=== PATIENT | female | born 1955 | race Caucasian/White ===

== ENCOUNTER 2023-04-15 03:14 | Outpatient (CLI) | payer MEDICARE, OTHER, SELFPAY ==
[2023-04-15 12:28] LABS: Abs Immature Grans 0.03 10^3/uL (0.0-0.06); Absolute Basophil Count 0.05 10^3/uL (0.0-0.2); Absolute Eosinophil Count 0.32 10^3/uL (0.0-0.7); Absolute Lymphocyte Count 4.33 10^3/uL (1.2-3.4); Absolute Monocyte Count 0.87 10^3/uL (0.1-0.8); Absolute Neutrophil Count 4.38 10^3/uL (1.2-6.7); Basophils % 0.5; Eosinophils % 3.2; HCT 42.8 % (36.0-46.0); HGB 14.1 g/dL (11.2-15.7); Immature Grans % 0.3; Lymphocytes % 43.4; MCH 28.7 pg (27.0-33.0); MCHC 32.9 % (32.0-36.0); MCV 87 fL (80-95); MPV 8.7 fL (8.0-11.0); Monocytes % 8.7; Neutrophils % 43.9; Platelet Count 200 10^3/uL (130-400); RBC 4.92 10^6/uL (3.93-5.22); RDW 15.1 % (11.7-14.6); RDW-SD 47.5 fL; WBC 9.98 10^3/uL (4.4-10.8)
[2023-04-15 12:46] LABS: ALT 20 U/L (14-59); AST 22 U/L (15-37); Albumin 3.2 g/dL (3.4-5.0); Alkaline Phosphatase 127 U/L (46-116); Anion Gap 6.9 mmol/L (3-11); BUN 12 mg/dL (7-18); Bilirubin, Total 0.3 mg/dL (0.2-1.0); CO2 28.1 mmol/L (21.0-32.0); CREATININE 0.8 mg/dL (0.55-1.02); Calcium 9.2 mg/dL (8.5-10.1); Chloride 105 mmol/L (98-107); Estimated GFR 81.21 (mL/min/1.73m2); Glucose 110 mg/dL (74-106); Magnesium 1.7 mg/dL (1.8-2.4); Potassium 4.1 mmol/L (3.5-5.1); Sodium 140 mmol/L (136-145); Total Protein 6.8 g/dL (6.4-8.2)
== END 2023-04-15 03:15 | disposition home or self-care (01) ==
LOC: LBO 03:14
PROVIDERS: PCP Nurse Practitioner Family; Visit Provider Internal Medicine Medical Oncology
DX: C34.11 Malignant neoplasm of upper lobe, right bronchus or lung (principal)
CPT/HCPCS: 36415; 80053; 83735; 85025

== ENCOUNTER 2023-05-04 04:49 | Outpatient (CLI) | payer MEDICARE, OTHER, SELFPAY ==
[2023-05-04 10:58] LABS: Abs Immature Grans 0.05 10^3/uL (0.0-0.06); Absolute Basophil Count 0.03 10^3/uL (0.0-0.2); Absolute Eosinophil Count 0.38 10^3/uL (0.0-0.7); Absolute Lymphocyte Count 2.25 10^3/uL (1.2-3.4); Absolute Neutrophil Count 3.35 10^3/uL (1.2-6.7); Basophils % 0.5; Eosinophils % 5.8; HCT 43.7 % (36.0-46.0); HGB 14.4 g/dL (11.2-15.7); Immature Grans % 0.8; Lymphocytes % 34.3; MCH 28.3 pg (27.0-33.0); MCV 86 fL (80-95); MPV 8.6 fL (8.0-11.0); Monocytes % 7.6; Platelet Count 205 10^3/uL (130-400); RBC 5.08 10^6/uL (3.93-5.22); RDW-SD 46.8 fL; WBC 6.56 10^3/uL (4.4-10.8)
[2023-05-04 11:19] LABS: ALT 20 U/L (14-59); AST 16 U/L (15-37); Albumin 3.1 g/dL (3.4-5.0); Alkaline Phosphatase 121 U/L (46-116); Anion Gap 10.5 mmol/L (3-11); BUN 14 mg/dL (7-18); Bilirubin, Total 0.3 mg/dL (0.2-1.0); CO2 23.5 mmol/L (21.0-32.0); CREATININE 0.7 mg/dL (0.55-1.02); Calcium 9.6 mg/dL (8.5-10.1); Chloride 109 mmol/L (98-107); Estimated GFR 95.32 (mL/min/1.73m2); Glucose 135 mg/dL (74-106); Magnesium 1.8 mg/dL (1.8-2.4); Potassium 3.7 mmol/L (3.5-5.1); Sodium 143 mmol/L (136-145); Total Protein 6.6 g/dL (6.4-8.2)
== END 2023-05-04 04:50 | disposition home or self-care (01) ==
LOC: LBO 04:49
PROVIDERS: PCP Nurse Practitioner Family; Visit Provider Internal Medicine Medical Oncology
DX: C34.11 Malignant neoplasm of upper lobe, right bronchus or lung (principal)
CPT/HCPCS: 36415; 80053; 83735; 85025

== ENCOUNTER 2023-05-11 03:48 | Outpatient (CLI) | payer MEDICARE, OTHER, SELFPAY ==
[2023-05-11 08:08] LABS: HCT 41.7 % (36.0-46.0); MCHC 33.6 % (32.0-36.0); MCV 86 fL (80-95); MPV 8.9 fL (8.0-11.0); Platelet Count 186 10^3/uL (130-400); RBC 4.83 10^6/uL (3.93-5.22); RDW 15.8 % (11.7-14.6); RDW-SD 47.8 fL; WBC 5.12 10^3/uL (4.4-10.8)
[2023-05-11 08:18] LABS: Magnesium 1.7 mg/dL (1.8-2.4)
[2023-05-11 09:17] LABS: Abs Immature Grans 0.05 10^3/uL (0.0-0.06); Absolute Basophil Count 0.02 10^3/uL (0.0-0.2); Absolute Eosinophil Count 0.25 10^3/uL (0.0-0.7); Absolute Lymphocyte Count 1.62 10^3/uL (1.2-3.4); Absolute Monocyte Count 0.36 10^3/uL (0.1-0.8); Absolute Neutrophil Count 2.82 10^3/uL (1.2-6.7); Basophils % 0.4; Eosinophils % 4.9; Lymphocytes % 31.6; Neutrophils % 55.1
[2023-05-11 09:21] LABS: ALT 20 U/L (14-59); AST 14 U/L (15-37); Albumin 3.2 g/dL (3.4-5.0); Alkaline Phosphatase 115 U/L (46-116); Anion Gap 8.8 mmol/L (3-11); BUN 17 mg/dL (7-18); Bilirubin, Total 0.3 mg/dL (0.2-1.0); CO2 26.2 mmol/L (21.0-32.0); CREATININE 0.7 mg/dL (0.55-1.02); Calcium 9.5 mg/dL (8.5-10.1); Chloride 108 mmol/L (98-107); Estimated GFR 95.32 (mL/min/1.73m2); Glucose 116 mg/dL (74-106); Sodium 143 mmol/L (136-145); Total Protein 6.7 g/dL (6.4-8.2)
== END 2023-05-11 03:49 | disposition home or self-care (01) ==
PROVIDERS: PCP Nurse Practitioner Family; Visit Provider Internal Medicine Medical Oncology
DX: C34.11 Malignant neoplasm of upper lobe, right bronchus or lung (principal)
CPT/HCPCS: 36415; 80053; 85027; 83735; 85007

== ENCOUNTER 2023-05-18 03:24 | Outpatient (CLI) | payer MEDICARE, OTHER, SELFPAY ==
[2023-05-18 08:12] LABS: Abs Immature Grans 0.04 10^3/uL (0.0-0.06); Absolute Basophil Count 0.02 10^3/uL (0.0-0.2); Absolute Eosinophil Count 0.23 10^3/uL (0.0-0.7); Absolute Monocyte Count 0.49 10^3/uL (0.1-0.8); Absolute Neutrophil Count 2.62 10^3/uL (1.2-6.7); Basophils % 0.4; HGB 13.5 g/dL (11.2-15.7); Immature Grans % 0.9; Lymphocytes % 26.1; MCHC 33.8 % (32.0-36.0); MCV 86 fL (80-95); Monocytes % 10.7; Neutrophils % 56.9; Platelet Count 161 10^3/uL (130-400); RBC 4.66 10^6/uL (3.93-5.22); RDW 16.2 % (11.7-14.6); RDW-SD 47.2 fL
[2023-05-18 08:28] LABS: ALT 19 U/L (14-59); AST 16 U/L (15-37); Albumin 3.4 g/dL (3.4-5.0); Alkaline Phosphatase 110 U/L (46-116); Anion Gap 10.2 mmol/L (3-11); BUN 10 mg/dL (7-18); Bilirubin, Total 0.4 mg/dL (0.2-1.0); CO2 27.8 mmol/L (21.0-32.0); CREATININE 0.7 mg/dL (0.55-1.02); Calcium 9.5 mg/dL (8.5-10.1); Chloride 106 mmol/L (98-107); Estimated GFR 95.32 (mL/min/1.73m2); Glucose 112 mg/dL (74-106); Magnesium 1.5 mg/dL (1.8-2.4); Potassium 3.4 mmol/L (3.5-5.1); Sodium 144 mmol/L (136-145); Total Protein 6.5 g/dL (6.4-8.2)
== END 2023-05-18 03:25 | disposition home or self-care (01) ==
LOC: LBO 03:24
PROVIDERS: PCP Nurse Practitioner Family; Visit Provider Internal Medicine Medical Oncology
DX: C34.11 Malignant neoplasm of upper lobe, right bronchus or lung (principal)
CPT/HCPCS: 36415; 80053; 83735; 85025

== ENCOUNTER 2023-05-25 01:04 | Outpatient (CLI) | payer MEDICARE, OTHER, SELFPAY ==
[2023-05-25 08:17] LABS: Abs Immature Grans 0.04 10^3/uL (0.0-0.06); Absolute Basophil Count 0.02 10^3/uL (0.0-0.2); Absolute Eosinophil Count 0.19 10^3/uL (0.0-0.7); Absolute Lymphocyte Count 1.02 10^3/uL (1.2-3.4); Absolute Monocyte Count 0.36 10^3/uL (0.1-0.8); Absolute Neutrophil Count 1.84 10^3/uL (1.2-6.7); Basophils % 0.6; Eosinophils % 5.5; HCT 38.5 % (36.0-46.0); HGB 13.1 g/dL (11.2-15.7); Immature Grans % 1.2; Lymphocytes % 29.4; MCV 85 fL (80-95); MPV 9.5 fL (8.0-11.0); Monocytes % 10.4; Neutrophils % 52.9; Platelet Count 122 10^3/uL (130-400); RBC 4.52 10^6/uL (3.93-5.22); RDW 17.2 % (11.7-14.6); RDW-SD 50.2 fL; WBC 3.47 10^3/uL (4.4-10.8)
[2023-05-25 08:35] LABS: ALT 21 U/L (14-59); AST 19 U/L (15-37); Albumin 3.2 g/dL (3.4-5.0); Alkaline Phosphatase 102 U/L (46-116); Anion Gap 10.7 mmol/L (3-11); BUN 11 mg/dL (7-18); Bilirubin, Total 0.4 mg/dL (0.2-1.0); CO2 26.3 mmol/L (21.0-32.0); CREATININE 0.7 mg/dL (0.55-1.02); Calcium 9.1 mg/dL (8.5-10.1); Chloride 105 mmol/L (98-107); Estimated GFR 95.32 (mL/min/1.73m2); Glucose 116 mg/dL (74-106); Magnesium 1.6 mg/dL (1.8-2.4); Potassium 3.3 mmol/L (3.5-5.1); Sodium 142 mmol/L (136-145); Total Protein 6.5 g/dL (6.4-8.2)
== END 2023-05-25 01:05 | disposition home or self-care (01) ==
PROVIDERS: PCP Nurse Practitioner Family; Visit Provider Internal Medicine Medical Oncology
DX: C34.11 Malignant neoplasm of upper lobe, right bronchus or lung (principal)
CPT/HCPCS: 36415; 80053; 83735; 85025

== ENCOUNTER 2023-06-01 03:56 | Outpatient (CLI) | payer MEDICARE, OTHER, SELFPAY ==
[2023-06-01 08:10] LABS: Abs Immature Grans 0.15 10^3/uL (0.0-0.06); MCH 29.4 pg (27.0-33.0); MCHC 34.3 % (32.0-36.0); MCV 86 fL (80-95); RBC 4.08 10^6/uL (3.93-5.22); RDW 18.1 % (11.7-14.6); RDW-SD 54.4 fL; WBC 2.41 10^3/uL (4.4-10.8)
[2023-06-01 08:23] LABS: ALT 16 U/L (14-59); AST 21 U/L (15-37); Albumin 2.9 g/dL (3.4-5.0); Alkaline Phosphatase 102 U/L (46-116); Anion Gap 7.4 mmol/L (3-11); BUN 9 mg/dL (7-18); Bilirubin, Total 0.4 mg/dL (0.2-1.0); CO2 26.6 mmol/L (21.0-32.0); CREATININE 0.7 mg/dL (0.55-1.02); Calcium 8.7 mg/dL (8.5-10.1); Chloride 108 mmol/L (98-107); Estimated GFR 95.32 (mL/min/1.73m2); Glucose 132 mg/dL (74-106); Magnesium 1.4 mg/dL (1.8-2.4); Potassium 3.6 mmol/L (3.5-5.1); Sodium 142 mmol/L (136-145)
[2023-06-01 08:58] LABS: Absolute Eosinophil Count 0.02 10^3/uL (0.0-0.7); Absolute Lymphocyte Count 0.39 10^3/uL (1.2-3.4); Absolute Monocyte Count 0.17 10^3/uL (0.1-0.8); Absolute Neutrophil Count 1.76 10^3/uL (1.2-6.7); Atypical Lymphocytes % 4; Myelocytes % 3
[2023-06-01 08:59] LABS: Platelet Count 83 10^3/uL (130-400)
== END 2023-06-01 03:57 | disposition home or self-care (01) ==
LOC: LBO 03:57
PROVIDERS: PCP Nurse Practitioner Family; Visit Provider Internal Medicine Medical Oncology
DX: C34.11 Malignant neoplasm of upper lobe, right bronchus or lung (principal)
CPT/HCPCS: 36415; 80053; 83735; 85025

== ENCOUNTER 2023-06-22 04:08 | Outpatient (CLI) | payer MEDICARE, OTHER, SELFPAY ==
[2023-06-22 08:54] LABS: Abs Immature Grans 0.03 10^3/uL (0.0-0.06); Absolute Basophil Count 0.01 10^3/uL (0.0-0.2); Absolute Eosinophil Count 0.22 10^3/uL (0.0-0.7); Absolute Lymphocyte Count 1.21 10^3/uL (1.2-3.4); Absolute Monocyte Count 0.84 10^3/uL (0.1-0.8); Absolute Neutrophil Count 3.37 10^3/uL (1.2-6.7); Basophils % 0.2; Eosinophils % 3.9; HCT 34.4 % (36.0-46.0); HGB 11.9 g/dL (11.2-15.7); Immature Grans % 0.5; Lymphocytes % 21.3; MCH 31.6 pg (27.0-33.0); MCHC 34.6 % (32.0-36.0); MCV 92 fL (80-95); MPV 9.1 fL (8.0-11.0); Monocytes % 14.8; Neutrophils % 59.3; Platelet Count 130 10^3/uL (130-400); RBC 3.76 10^6/uL (3.93-5.22); RDW 22.9 % (11.7-14.6); RDW-SD 73.6 fL; WBC 5.68 10^3/uL (4.4-10.8)
[2023-06-22 09:15] LABS: Anisocytosis 2+; Diff Comment RBC Morph Reviewed
[2023-06-22 09:18] LABS: ALT 15 U/L (14-59); AST 15 U/L (15-37); Albumin 3.1 g/dL (3.4-5.0); Alkaline Phosphatase 115 U/L (46-116); BUN 13 mg/dL (7-18); Bilirubin, Total 0.5 mg/dL (0.2-1.0); CREATININE 0.8 mg/dL (0.55-1.02); Calcium 9.6 mg/dL (8.5-10.1); Chloride 105 mmol/L (98-107); Estimated GFR 81.21 (mL/min/1.73m2); Glucose 109 mg/dL (74-106); Magnesium 1.6 mg/dL (1.8-2.4); Potassium 3.9 mmol/L (3.5-5.1); Sodium 141 mmol/L (136-145); Total Protein 6.4 g/dL (6.4-8.2)
[2023-06-22 11:24] LABS: FREE T4 0.85 ng/dL (0.76-1.46); TSH 12.61 uIU/mL (0.36-3.74)
== END 2023-06-22 04:09 | disposition home or self-care (01) ==
LOC: LBO 04:09
PROVIDERS: PCP Nurse Practitioner Family; Visit Provider Internal Medicine Medical Oncology
DX: C34.11 Malignant neoplasm of upper lobe, right bronchus or lung (principal); Z79.899 Other long term (current) drug therapy
CPT/HCPCS: 36415; 80053; 83735; 84439; 84443; 85025

== ENCOUNTER 2023-07-21 03:15 | Outpatient (CLI) | payer MEDICARE, OTHER, SELFPAY ==
[2023-07-21 12:06] LABS: Abs Immature Grans 0.03 10^3/uL (0.0-0.06); Absolute Basophil Count 0.02 10^3/uL (0.0-0.2); Absolute Eosinophil Count 0.46 10^3/uL (0.0-0.7); Absolute Lymphocyte Count 1.96 10^3/uL (1.2-3.4); Absolute Monocyte Count 0.76 10^3/uL (0.1-0.8); Absolute Neutrophil Count 3.52 10^3/uL (1.2-6.7); Basophils % 0.3; Eosinophils % 6.8; HCT 39.3 % (36.0-46.0); HGB 13.6 g/dL (11.2-15.7); Immature Grans % 0.4; MCH 33.1 pg (27.0-33.0); MCHC 34.6 % (32.0-36.0); MCV 96 fL (80-95); MPV 8.9 fL (8.0-11.0); Monocytes % 11.3; Neutrophils % 52.2; Platelet Count 163 10^3/uL (130-400); RBC 4.11 10^6/uL (3.93-5.22); RDW 15.5 % (11.7-14.6); RDW-SD 53.8 fL; WBC 6.75 10^3/uL (4.4-10.8)
[2023-07-21 12:22] LABS: ALT 38 U/L (14-59); AST 36 U/L (15-37); Albumin 3.2 g/dL (3.4-5.0); Alkaline Phosphatase 135 U/L (46-116); Anion Gap 10.1 mmol/L (3-11); BUN 14 mg/dL (7-18); Bilirubin, Total 0.4 mg/dL (0.2-1.0); CO2 25.9 mmol/L (21.0-32.0); CREATININE 0.8 mg/dL (0.55-1.02); Calcium 8.8 mg/dL (8.5-10.1); Chloride 105 mmol/L (98-107); Estimated GFR 81.21 (mL/min/1.73m2); Glucose 98 mg/dL (74-106); Magnesium 1.8 mg/dL (1.8-2.4); Potassium 3.7 mmol/L (3.5-5.1); Sodium 141 mmol/L (136-145); Total Protein 6.4 g/dL (6.4-8.2)
== END 2023-07-21 03:16 | disposition home or self-care (01) ==
LOC: LBO 03:16
PROVIDERS: PCP Nurse Practitioner Family; Visit Provider Internal Medicine Medical Oncology
DX: C34.11 Malignant neoplasm of upper lobe, right bronchus or lung (principal)
CPT/HCPCS: 36415; 80053; 83735; 85025

== ENCOUNTER 2023-08-17 03:16 | Outpatient (CLI) | payer MEDICARE, OTHER, SELFPAY ==
[2023-08-17 08:49] LABS: Abs Immature Grans 0.03 10^3/uL (0.0-0.06); Absolute Basophil Count 0.04 10^3/uL (0.0-0.2); Absolute Eosinophil Count 0.52 10^3/uL (0.0-0.7); Absolute Lymphocyte Count 1.77 10^3/uL (1.2-3.4); Absolute Monocyte Count 0.73 10^3/uL (0.1-0.8); Absolute Neutrophil Count 3.92 10^3/uL (1.2-6.7); Basophils % 0.6; Eosinophils % 7.4; HCT 44.4 % (36.0-46.0); HGB 15.4 g/dL (11.2-15.7); Immature Grans % 0.4; Lymphocytes % 25.2; MCH 32.6 pg (27.0-33.0); MCHC 34.7 % (32.0-36.0); MCV 94 fL (80-95); MPV 8.9 fL (8.0-11.0); Monocytes % 10.4; Platelet Count 178 10^3/uL (130-400); RBC 4.73 10^6/uL (3.93-5.22); RDW 12.4 % (11.7-14.6); RDW-SD 42.8 fL; WBC 7.01 10^3/uL (4.4-10.8)
[2023-08-17 09:49] LABS: ALT 25 U/L (14-59); AST 20 U/L (15-37); Albumin 3.4 g/dL (3.4-5.0); Alkaline Phosphatase 152 U/L (46-116); Anion Gap 11.4 mmol/L (3-11); BUN 10 mg/dL (7-18); Bilirubin, Total 0.4 mg/dL (0.2-1.0); CO2 24.6 mmol/L (21.0-32.0); CREATININE 0.8 mg/dL (0.55-1.02); Calcium 9.5 mg/dL (8.5-10.1); Chloride 106 mmol/L (98-107); Estimated GFR 81.21 (mL/min/1.73m2); Glucose 146 mg/dL (74-106); Magnesium 1.8 mg/dL (1.8-2.4); Potassium 3.9 mmol/L (3.5-5.1); Sodium 142 mmol/L (136-145); Total Protein 6.9 g/dL (6.4-8.2)
[2023-08-17 11:51] LABS: FREE T4 0.79 ng/dL (0.76-1.46); TSH 6.78 uIU/mL (0.36-3.74)
== END 2023-08-17 03:17 | disposition home or self-care (01) ==
PROVIDERS: PCP Nurse Practitioner Family; Visit Provider Internal Medicine Medical Oncology
DX: C34.11 Malignant neoplasm of upper lobe, right bronchus or lung (principal); Z79.899 Other long term (current) drug therapy
CPT/HCPCS: 36415; 80053; 83735; 84439; 84443; 85025

== ENCOUNTER 2023-09-14 04:04 | Outpatient (CLI) | payer MEDICARE, OTHER, SELFPAY ==
[2023-09-14 09:09] LABS: HCT 46.1 % (36.0-46.0); HGB 16.3 g/dL (11.2-15.7); MCH 32.1 pg (27.0-33.0); MCHC 35.4 % (32.0-36.0); MCV 91 fL (80-95); Platelet Count 157 10^3/uL (130-400); RBC 5.08 10^6/uL (3.93-5.22); RDW 12.6 % (11.7-14.6); RDW-SD 41.9 fL
[2023-09-14 09:10] LABS: Abs Immature Grans 0.04 10^3/uL (0.0-0.06); Absolute Basophil Count 0.02 10^3/uL (0.0-0.2); Absolute Eosinophil Count 0.25 10^3/uL (0.0-0.7); Absolute Lymphocyte Count 1.32 10^3/uL (1.2-3.4); Absolute Monocyte Count 0.81 10^3/uL (0.1-0.8); Absolute Neutrophil Count 5.16 10^3/uL (1.2-6.7); Basophils % 0.3; Eosinophils % 3.3; Immature Grans % 0.5; Lymphocytes % 17.4; MPV 8.8 fL (8.0-11.0); Monocytes % 10.7; Neutrophils % 67.8
[2023-09-14 09:26] LABS: ALT 20 U/L (14-59); AST 18 U/L (15-37); Albumin 3.6 g/dL (3.4-5.0); Alkaline Phosphatase 143 U/L (46-116); Anion Gap 12.4 mmol/L (3-11); BUN 11 mg/dL (7-18); Bilirubin, Total 0.4 mg/dL (0.2-1.0); CO2 27.6 mmol/L (21.0-32.0); Calcium 9.4 mg/dL (8.5-10.1); Chloride 106 mmol/L (98-107); Estimated GFR 62.13 (mL/min/1.73m2); Glucose 129 mg/dL (74-106); Magnesium 1.6 mg/dL (1.8-2.4); Potassium 3.7 mmol/L (3.5-5.1); Sodium 146 mmol/L (136-145); Total Protein 7.2 g/dL (6.4-8.2)
[2023-09-14 11:34] LABS: FREE T4 0.82 ng/dL (0.76-1.46); TSH 5.99 uIU/mL (0.36-3.74)
== END 2023-09-14 04:05 | disposition home or self-care (01) ==
LOC: LBO 04:05
PROVIDERS: PCP Nurse Practitioner Family; Visit Provider Internal Medicine Medical Oncology
DX: C34.11 Malignant neoplasm of upper lobe, right bronchus or lung (principal); Z79.899 Other long term (current) drug therapy
CPT/HCPCS: 36415; 80053; 83735; 84439; 84443; 85025

== ENCOUNTER 2023-10-12 05:08 | Outpatient (CLI) | payer MEDICARE, OTHER, SELFPAY ==
[2023-10-12 09:58] LABS: Abs Immature Grans 0.02 10^3/uL (0.0-0.06); Absolute Basophil Count 0.04 10^3/uL (0.0-0.2); Absolute Eosinophil Count 0.29 10^3/uL (0.0-0.7); Absolute Lymphocyte Count 1.53 10^3/uL (1.2-3.4); Absolute Monocyte Count 0.76 10^3/uL (0.1-0.8); Absolute Neutrophil Count 5.91 10^3/uL (1.2-6.7); Basophils % 0.5; Eosinophils % 3.4; HCT 46.9 % (36.0-46.0); HGB 16.3 g/dL (11.2-15.7); Immature Grans % 0.2; Lymphocytes % 17.9; MCH 31.8 pg (27.0-33.0); MCHC 34.8 % (32.0-36.0); MCV 91 fL (80-95); Monocytes % 8.9; Neutrophils % 69.1; RBC 5.13 10^6/uL (3.93-5.22); RDW 12.9 % (11.7-14.6); RDW-SD 42.7 fL; WBC 8.55 10^3/uL (4.4-10.8)
[2023-10-12 10:19] LABS: Diff Comment Diff Reviewed; RBC Morphology Normal
[2023-10-12 10:29] LABS: ALT 15 U/L (14-59); AST 19 U/L (15-37); Albumin 3.2 g/dL (3.4-5.0); Alkaline Phosphatase 130 U/L (46-116); Anion Gap 8.2 mmol/L (3-11); BUN 13 mg/dL (7-18); Bilirubin, Total 0.4 mg/dL (0.2-1.0); CO2 26.8 mmol/L (21.0-32.0); CREATININE 0.8 mg/dL (0.55-1.02); Chloride 105 mmol/L (98-107); Estimated GFR 81.21 (mL/min/1.73m2); FREE T4 0.84 ng/dL (0.76-1.46); Glucose 142 mg/dL (74-106); Magnesium 1.8 mg/dL (1.8-2.4); Potassium 3.8 mmol/L (3.5-5.1); Sodium 140 mmol/L (136-145); TSH 6.46 uIU/Ml (0.36-3.74); Total Protein 6.5 g/dL (6.4-8.2)
== END 2023-10-12 05:09 | disposition home or self-care (01) ==
LOC: LBO 05:08
PROVIDERS: PCP Nurse Practitioner Family; Visit Provider Internal Medicine Medical Oncology
DX: Z79.899 Other long term (current) drug therapy (principal); C34.11 Malignant neoplasm of upper lobe, right bronchus or lung
CPT/HCPCS: 36415; 80053; 83735; 84439; 84443; 85025

== ENCOUNTER 2023-11-09 07:46 | Outpatient (RCR) | payer MEDICARE, OTHER, SELFPAY ==
[2023-11-09] MEDS: Normal Saline Flush 10 ML SYR IVP (09:30)
[2023-11-09 10:06] LABS: Abs Immature Grans 0.02 10^3/uL (0.0-0.06); Absolute Basophil Count 0.03 10^3/uL (0.0-0.2); Absolute Eosinophil Count 0.23 10^3/uL (0.0-0.7); Absolute Lymphocyte Count 2.12 10^3/uL (1.2-3.4); Absolute Monocyte Count 0.68 10^3/uL (0.1-0.8); Absolute Neutrophil Count 4.64 10^3/uL (1.2-6.7); Basophils % 0.4; HCT 43.8 % (36.0-46.0); HGB 15.7 g/dL (11.2-15.7); Immature Grans % 0.3; Lymphocytes % 27.5; MCH 32.6 pg (27.0-33.0); MCHC 35.8 % (32.0-36.0); MCV 91 fL (80-95); MPV 8.9 fL (8.0-11.0); Monocytes % 8.8; Platelet Count 167 10^3/uL (130-400); RBC 4.82 10^6/uL (3.93-5.22); RDW 13.8 % (11.7-14.6); RDW-SD 45.8 fL; WBC 7.72 10^3/uL (4.4-10.8)
[2023-11-09 10:26] LABS: ALT 21 U/L (14-59); AST 14 U/L (15-37); Albumin 3.4 g/dL (3.4-5.0); Alkaline Phosphatase 162 U/L (46-116); Anion Gap 9.1 mmol/L (3-11); BUN 11 mg/dL (7-18); Bilirubin, Total 0.5 mg/dL (0.2-1.0); CO2 28.9 mmol/L (21.0-32.0); CREATININE 0.8 mg/dL (0.55-1.02); Calcium 8.8 mg/dL (8.5-10.1); Chloride 103 mmol/L (98-107); Estimated GFR 80.71 (mL/min/1.73m2); Glucose 123 mg/dL (74-106); Magnesium 1.7 mg/dL (1.8-2.4); Potassium 3.7 mmol/L (3.5-5.1); Sodium 141 mmol/L (136-145); Total Protein 6.6 g/dL (6.4-8.2)
[2023-11-09 11:00] LABS: FREE T4 0.85 ng/dL (0.76-1.46); TSH 7.48 uIU/Ml (0.36-3.74)
== END 2023-11-17 23:59 | disposition home or self-care (01) ==
LOC: INF 07:46
PROVIDERS: PCP Nurse Practitioner Family; Visit Provider Internal Medicine Medical Oncology
DX: C34.11 Malignant neoplasm of upper lobe, right bronchus or lung (principal); Z79.899 Other long term (current) drug therapy; Z45.2 Encounter for adjustment and management of vascular access device
CPT/HCPCS: 36591; 80053; 83735; 84439; 84443; 85025

== ENCOUNTER 2023-11-23 04:57 | Outpatient (RCR) | payer MEDICARE, OTHER, SELFPAY ==
[2023-11-23] MEDS: Normal Saline Flush 10 ML SYR IVP (12:35)
[2023-11-23 12:44] LABS: Abs Immature Grans 0.03 10^3/uL (0.0-0.06); Absolute Basophil Count 0.02 10^3/uL (0.0-0.2); Absolute Eosinophil Count 0.21 10^3/uL (0.0-0.7); Absolute Lymphocyte Count 1.89 10^3/uL (1.2-3.4); Absolute Monocyte Count 1.01 10^3/uL (0.1-0.8); Absolute Neutrophil Count 5.53 10^3/uL (1.2-6.7); Basophils % 0.2 %; Eosinophils % 2.4 %; HGB 15.8 g/dL (11.2-15.7); Immature Grans % 0.3 %; Lymphocytes % 21.7 %; MCHC 35.1 % (32.0-36.0); MCV 91 fL (80-95); MPV 8.9 fL (8.0-11.0); Monocytes % 11.6 %; Neutrophils % 63.8 %; Platelet Count 177 10^3/uL (130-400); RBC 4.93 10^6/uL (3.93-5.22); RDW 13.5 % (11.7-14.6); RDW-SD 45.4 fL; WBC 8.69 10^3/uL (4.4-10.8)
[2023-11-23 13:01] LABS: ALT 19 U/L (14-59); AST 15 U/L (15-37); Albumin 3.5 g/dL (3.4-5.0); Alkaline Phosphatase 156 U/L (46-116); Anion Gap 12.5 mmol/L (3-11); BUN 14 mg/dL (7-18); Bilirubin, Total 0.7 mg/dL (0.2-1.0); CO2 25.5 mmol/L (21.0-32.0); Calcium 9.3 mg/dL (8.5-10.1); Chloride 103 mmol/L (98-107); Estimated GFR 61.75 (mL/min/1.73m2); Glucose 143 mg/dL (74-106); Magnesium 1.7 mg/dL (1.8-2.4); Potassium 3.7 mmol/L (3.5-5.1); Sodium 141 mmol/L (136-145); Total Protein 6.5 g/dL (6.4-8.2)
[2023-11-23 13:51] LABS: FREE T4 0.83 ng/dL (0.76-1.46); TSH 4.64 uIU/Ml (0.36-3.74)
== END 2023-12-18 23:59 | disposition home or self-care (01) ==
LOC: INF 04:57
PROVIDERS: PCP Nurse Practitioner Family; Visit Provider Internal Medicine Medical Oncology
DX: C34.11 Malignant neoplasm of upper lobe, right bronchus or lung (principal); Z79.899 Other long term (current) drug therapy; C85.90 Non-Hodgkin lymphoma, unspecified, unspecified site; Z45.2 Encounter for adjustment and management of vascular access device
CPT/HCPCS: 36591; 80053; 83735; 84439; 84443; 85025

== ENCOUNTER 2023-12-16 04:56 | Outpatient (RCR) | payer SELFPAY ==
[2023-12-16] MEDS: Normal Saline Flush 10 ML SYR IVP (09:57)
[2023-12-16 10:14] LABS: Abs Immature Grans 0.04 10^3/uL (0.0-0.06); Absolute Basophil Count 0.01 10^3/uL (0.0-0.2); Absolute Monocyte Count 0.93 10^3/uL (0.1-0.8); Absolute Neutrophil Count 3.96 10^3/uL (1.2-6.7); Basophils % 0.2 %; Eosinophils % 3.1 %; HCT 40.3 % (36.0-46.0); HGB 14.4 g/dL (11.2-15.7); Immature Grans % 0.6 %; Lymphocytes % 21.4 %; MCHC 35.7 % (32.0-36.0); MCV 92 fL (80-95); Monocytes % 14.2 %; Neutrophils % 60.5 %; Platelet Count 161 10^3/uL (130-400); RBC 4.36 10^6/uL (3.93-5.22); RDW 15.1 % (11.7-14.6); RDW-SD 49.2 fL; WBC 6.54 10^3/uL (4.4-10.8)
[2023-12-16 10:41] LABS: ALT 25 U/L (14-59); AST 18 U/L (15-37); Albumin 3.3 g/dL (3.4-5.0); Alkaline Phosphatase 148 U/L (46-116); Anion Gap 10.6 mmol/L (3-11); BUN 7 mg/dL (7-18); Bilirubin, Total 0.6 mg/dL (0.2-1.0); CO2 25.4 mmol/L (21.0-32.0); CREATININE 0.7 mg/dL (0.55-1.02); Calcium 8.6 mg/dL (8.5-10.1); Chloride 102 mmol/L (98-107); Estimated GFR 94.73 (mL/min/1.73m2); FREE T4 0.83 ng/dL (0.76-1.46); Glucose 136 mg/dL (74-106); Magnesium 1.8 mg/dL (1.8-2.4); Potassium 3.3 mmol/L (3.5-5.1); Sodium 138 mmol/L (136-145); TSH 5.07 uIU/Ml (0.36-3.74); Total Protein 6.7 g/dL (6.4-8.2)
== END 2023-12-18 23:59 | disposition home or self-care (01) ==
LOC: INF 04:56
PROVIDERS: Visit Provider Internal Medicine Medical Oncology
DX: C34.11 Malignant neoplasm of upper lobe, right bronchus or lung (principal); Z79.899 Other long term (current) drug therapy
CPT/HCPCS: 36415; 80053; 96523; 83735; 84439; 84443; 85025

== ENCOUNTER 2024-01-13 07:30 | Outpatient (RCR) | payer MEDICARE, OTHER, SELFPAY ==
[2024-01-04] MEDS: Normal Saline Flush 10 ML SYR IVP (12:05)
[2024-01-04 12:14] LABS: Abs Immature Grans 0.03 10^3/uL (0.0-0.06); Absolute Basophil Count 0.01 10^3/uL (0.0-0.2); Absolute Eosinophil Count 0.19 10^3/uL (0.0-0.7); Absolute Lymphocyte Count 1.55 10^3/uL (1.2-3.4); Absolute Monocyte Count 0.75 10^3/uL (0.1-0.8); Absolute Neutrophil Count 3.46 10^3/uL (1.2-6.7); Basophils % 0.2 %; Eosinophils % 3.2 %; HCT 36.3 % (36.0-46.0); HGB 12.4 g/dL (11.2-15.7); Immature Grans % 0.5 %; Lymphocytes % 25.9 %; MCH 32.8 pg (27.0-33.0); MCHC 34.2 % (32.0-36.0); MCV 96 fL (80-95); MPV 9.4 fL (8.0-11.0); Monocytes % 12.5 %; Neutrophils % 57.7 %; Platelet Count 174 10^3/uL (130-400); RBC 3.78 10^6/uL (3.93-5.22); RDW 16.9 % (11.7-14.6); RDW-SD 53.6 fL; WBC 5.99 10^3/uL (4.4-10.8)
[2024-01-04 12:42] LABS: ALT 24 U/L (14-59); AST 17 U/L (15-37); Albumin 2.9 g/dL (3.4-5.0); Alkaline Phosphatase 144 U/L (46-116); Anion Gap 9.6 mmol/L (3-11); BUN 7 mg/dL (7-18); Bilirubin, Total 0.4 mg/dL (0.2-1.0); CO2 26.4 mmol/L (21.0-32.0); CREATININE 0.7 mg/dL (0.55-1.02); Calcium 8.7 mg/dL (8.5-10.1); Chloride 104 mmol/L (98-107); Estimated GFR 94.73 (mL/min/1.73m2); FREE T4 0.78 ng/dL (0.76-1.46); Glucose 212 mg/dL (74-106); Magnesium 1.4 mg/dL (1.8-2.4); Sodium 140 mmol/L (136-145); TSH 4.26 uIU/Ml (0.36-3.74); Total Protein 6.2 g/dL (6.4-8.2)
[2024-01-13] MEDS: Normal Saline Flush 10 ML SYR IVP (07:45)
[2024-01-13 07:56] LABS: Abs Immature Grans 0.05 10^3/uL (0.0-0.06); Absolute Basophil Count 0.03 10^3/uL (0.0-0.2); Absolute Eosinophil Count 0.34 10^3/uL (0.0-0.7); Absolute Lymphocyte Count 2.43 10^3/uL (1.2-3.4); Absolute Neutrophil Count 6.15 10^3/uL (1.2-6.7); Basophils % 0.3 %; Eosinophils % 3.3 %; HCT 43.9 % (36.0-46.0); HGB 15.2 g/dL (11.2-15.7); Immature Grans % 0.5 %; Lymphocytes % 23.6 %; MCH 33.6 pg (27.0-33.0); MCHC 34.6 % (32.0-36.0); MCV 97 fL (80-95); MPV 9.3 fL (8.0-11.0); Monocytes % 12.6 %; Neutrophils % 59.7 %; Platelet Count 198 10^3/uL (130-400); RBC 4.52 10^6/uL (3.93-5.22); RDW 17.1 % (11.7-14.6); RDW-SD 59.9 fL
[2024-01-13 08:22] LABS: ALT 24 U/L (14-59); AST 20 U/L (15-37); Albumin 3.4 g/dL (3.4-5.0); Alkaline Phosphatase 143 U/L (46-116); Anion Gap 9.9 mmol/L (3-11); BUN 11 mg/dL (7-18); CO2 27.1 mmol/L (21.0-32.0); CREATININE 0.8 mg/dL (0.55-1.02); Calcium 9.7 mg/dL (8.5-10.1); Chloride 103 mmol/L (98-107); Estimated GFR 80.71 (mL/min/1.73m2); FREE T4 1.09 ng/dL (0.76-1.46); Glucose 129 mg/dL (74-106); Magnesium 1.6 mg/dL (1.8-2.4); Potassium 3.5 mmol/L (3.5-5.1); Sodium 140 mmol/L (136-145); TSH 10.39 uIU/Ml (0.36-3.74); Total Protein 6.8 g/dL (6.4-8.2)
== END 2024-01-17 23:59 | disposition home or self-care (01) ==
LOC: INF 07:30
PROVIDERS: PCP Nurse Practitioner Family; Visit Provider Internal Medicine Medical Oncology
DX: Z79.899 Other long term (current) drug therapy (principal); C34.11 Malignant neoplasm of upper lobe, right bronchus or lung; Z45.2 Encounter for adjustment and management of vascular access device
CPT/HCPCS: 36591; 80053; 83735; 84439; 84443; 85025

== ENCOUNTER 2024-02-01 11:27 | Outpatient (RCR) | payer MEDICARE, OTHER, SELFPAY ==
[2024-02-01 12:20] LABS: Abs Immature Grans 0.02 10^3/uL (0.0-0.06); Absolute Basophil Count 0.02 10^3/uL (0.0-0.2); Absolute Eosinophil Count 0.33 10^3/uL (0.0-0.7); Absolute Lymphocyte Count 2.14 10^3/uL (1.2-3.4); Absolute Monocyte Count 0.94 10^3/uL (0.1-0.8); Basophils % 0.3 %; Eosinophils % 4.7 %; HCT 38.7 % (36.0-46.0); HGB 13.7 g/dL (11.2-15.7); Immature Grans % 0.3 %; Lymphocytes % 30.4 %; MCH 34.3 pg (27.0-33.0); MCHC 35.4 % (32.0-36.0); MCV 97 fL (80-95); MPV 9.5 fL (8.0-11.0); Monocytes % 13.3 %; Platelet Count 148 10^3/uL (130-400); RDW-SD 56.3 fL; WBC 7.05 10^3/uL (4.4-10.8)
[2024-02-01 12:35] LABS: ALT 31 U/L (14-59); AST 23 U/L (15-37); Albumin 3.5 g/dL (3.4-5.0); Alkaline Phosphatase 120 U/L (46-116); BUN 7 mg/dL (7-18); Bilirubin, Total 0.54 mg/dL (0.2-1.0); CREATININE 0.7 mg/dL (0.55-1.02); Chloride 103 mmol/L (98-107); Estimated GFR 94.73 (mL/min/1.73m2); Glucose 130 mg/dL (74-106); Magnesium 1.7 mg/dL (1.8-2.4); Sodium 140 mmol/L (136-145); Total Protein 6.6 g/dL (6.4-8.2)
[2024-02-01] MEDS: Normal Saline Flush 10 ML SYR IVP (14:15)
== END 2024-02-17 23:59 | disposition home or self-care (01) ==
LOC: INF 11:27
PROVIDERS: PCP Nurse Practitioner Family; Visit Provider Internal Medicine Medical Oncology
DX: C34.11 Malignant neoplasm of upper lobe, right bronchus or lung (principal); Z79.899 Other long term (current) drug therapy; Z45.2 Encounter for adjustment and management of vascular access device
CPT/HCPCS: 36591; 80053; 83735; 84439; 84443; 85025

== ENCOUNTER 2024-02-22 02:56 | Outpatient (RCR) | payer MEDICARE, OTHER, SELFPAY ==
[2024-02-22 10:43] LABS: Abs Immature Grans 0.02 10^3/uL (0.0-0.06); Absolute Basophil Count 0.01 10^3/uL (0.0-0.2); Absolute Eosinophil Count 0.13 10^3/uL (0.0-0.7); Absolute Lymphocyte Count 1.53 10^3/uL (1.2-3.4); Absolute Monocyte Count 0.78 10^3/uL (0.1-0.8); Absolute Neutrophil Count 3.23 10^3/uL (1.2-6.7); Basophils % 0.2 %; Eosinophils % 2.3 %; HCT 34.5 % (36.0-46.0); HGB 11.8 g/dL (11.2-15.7); Immature Grans % 0.4 %; Lymphocytes % 26.8 %; MCH 34.2 pg (27.0-33.0); MCHC 34.2 % (32.0-36.0); MCV 100 fL (80-95); MPV 10.6 fL (8.0-11.0); Monocytes % 13.7 %; Neutrophils % 56.6 %; Platelet Count 101 10^3/uL (130-400); RBC 3.45 10^6/uL (3.93-5.22); RDW 15.6 % (11.7-14.6); RDW-SD 56.3 fL
[2024-02-22 10:57] LABS: ALT 32 U/L (14-59); AST 22 U/L (15-37); Albumin 3.3 g/dL (3.4-5.0); Alkaline Phosphatase 107 U/L (46-116); Anion Gap 8.3 mmol/L (3-11); BUN 9 mg/dL (7-18); Bilirubin, Total 0.63 mg/dL (0.2-1.0); CO2 26.7 mmol/L (21.0-32.0); CREATININE 0.9 mg/dL (0.55-1.02); Calcium 9.1 mg/dL (8.5-10.1); Chloride 104 mmol/L (98-107); Estimated GFR 70.07 (mL/min/1.73m2); Glucose 159 mg/dL (74-106); Magnesium 1.7 mg/dL (1.8-2.4); Potassium 3.6 mmol/L (3.5-5.1); Sodium 139 mmol/L (136-145); Total Protein 6.5 g/dL (6.4-8.2)
[2024-02-22 11:36] LABS: FREE T4 1.13 ng/dL (0.76-1.46); TSH 3.24 uIU/Ml (0.36-3.74)
[2024-02-22] MEDS: Normal Saline Flush 10 ML SYR IVP (12:41)
== END 2024-03-19 23:59 | disposition home or self-care (01) ==
LOC: INF 02:56
PROVIDERS: PCP Nurse Practitioner Family; Visit Provider Internal Medicine Medical Oncology
DX: C34.11 Malignant neoplasm of upper lobe, right bronchus or lung (principal); Z79.899 Other long term (current) drug therapy; Z45.2 Encounter for adjustment and management of vascular access device
CPT/HCPCS: 36591; 80053; 83735; 84439; 84443; 85025